=== PATIENT | female | born 1990 | race African-American/Black ===

== ENCOUNTER 2017-08-15 23:33 | Emergency (ER) | payer OTHER ==
[~2017-08-15] VITALS: Ht 160 cm; Wt 49.9 kg
--- NOTE | 2017-08-15 23:40 | NUR ---
TO BED 7 A 26 YO FEMALE PATIENT BBSELF C/O N/V SINCE TODAY. VSS. NAD NOTED. NONDIAPHORETIC. AMBULATORY. COMFORT MEASURES RENDERED.
[2017-08-16] MEDS ORDERED: ONDANSETRON HCL/PF 4 MG/2 ML VIAL ONE (00:12)
--- NOTE | 2017-08-16 00:15 | NUR ---
started a saline lock on the lac g20.
--- NOTE | 2017-08-16 00:19 | NUR ---
medicated patient as ordered by Dr Causey.
[2017-08-16] MEDS ORDERED: IV NS 0.9% 1,000 ML BAG IV ONE (00:30)
[2017-08-16] MEDS ORDERED: ONDANSETRON HCL/PF 4 MG/2 ML VIAL IVP ONE (00:30)
[2017-08-16] MEDS ORDERED: ACETAMINOPHEN ES 500 MG TABLET ONE (00:53)
[2017-08-16] MEDS ORDERED: ACETAMINOPHEN 325 MG TABLET PO ONE (01:00)
[2017-08-16 01:30] VITALS: BP 120/87
--- NOTE | 2017-08-16 01:30 | NUR ---
IV removed. Catheter intact and site benign. Pressure and 4x4 applied to site. No bleeding noted. Patient discharged to home in stable condition. Written and verbal after care instructions given. Patient verbalizes understanding of instruction. Patient is ambulatory with steady gait. No further complaints on dc.
== END 2017-08-16 01:31 | disposition home or self-care (01) ==
LOC: ER 23:34
DX: R11.2 Nausea with vomiting, unspecified (principal)
CPT/HCPCS: 96361; 96374; 99284; A4606; J2405; J7030; Z7610